=== PATIENT | female | born 1985 | race Caucasian/White ===

== ENCOUNTER → 2019-05-04 09:41 | Outpatient (BNVA) | payer BC, SELFPAY | PROVIDERS: Family Provider Family Medicine; PCP Family Medicine; Visit Provider Family Medicine | DX: E03.9 Hypothyroidism, unspecified (principal); R63.5 Abnormal weight gain; R22.1 Localized swelling, mass and lump, neck | CPT/HCPCS: 36415; 80053; 80061; 84439; 84443; 84480; 85007; 85027 ==

== ENCOUNTER → 2019-05-25 14:59 | Outpatient (BNVA) | payer BC, SELFPAY | PROVIDERS: Family Provider Family Medicine; PCP Family Medicine; Referring Provider Family Medicine; Visit Provider Otolaryngology | DX: J02.9 Acute pharyngitis, unspecified (principal); E03.9 Hypothyroidism, unspecified; R22.1 Localized swelling, mass and lump, neck; R13.10 Dysphagia, unspecified | CPT/HCPCS: 99204; 99214 ==

== ENCOUNTER 2019-06-17 15:58 | Outpatient (CLI) | payer BC, SELFPAY ==
--- NOTE | 2019-06-17 15:30 | CTR_ITS ---
PROCEDURE INFORMATION: Exam: CT Neck With Contrast Exam date and time: 06/17/2019 4:15 PM Age: 33 years old Clinical indication: Mass, lump, or swelling in neck; Prior surgery; Surgery type: Thyroid TECHNIQUE: Imaging protocol: Computed tomography images of the neck with intravenous contrast. Total DLP: 638.94 mGy-cm Radiation optimization: All CT scans at this facility use at least one of these dose optimization techniques: automated exposure control; mA and/or kV adjustment per patient size (includes targeted exams where dose is matched to clinical indication); or iterative reconstruction. Contrast material: OMNI 300; Contrast volume: 95 ml; Contrast route: IV; COMPARISON: [place] thyroid [id number] 03/30/2018 4:40 PM FINDINGS: Nasopharynx: Unremarkable. Oropharynx: Unremarkable. No significant tonsillar enlargement. Hypopharynx: Unremarkable Larynx: Unremarkable. Normal epiglottis. Retropharyngeal space: Unremarkable. Submandibular/Parotid glands: Normal. Glands are normal in size. Thyroid: Status post thyroidectomy. Lymph nodes: Unremarkable. No lymphadenopathy. Trachea: Visualized trachea is unremarkable. Lungs: Unremarkable as visualized. Bones/joints: Unremarkable. No acute fracture. Soft tissues: Unremarkable. No significant soft tissue swelling. CT/CT neck w con* [id number] IMPRESSION: No acute findings. Radiation Dose CTDIVOL = (mGy): DLP = 638.94 (mGy-cm)
[2019-06-17] MEDS: iohexol 300 mg/mL 100 mL Btl 95 ML IV (17:00)
== END 2019-06-17 15:59 | disposition home or self-care (01) ==
LOC: RAD 16:04
PROVIDERS: Family Provider Family Medicine; PCP Family Medicine; Visit Provider Otolaryngology
DX: J02.9 Acute pharyngitis, unspecified (principal); E03.9 Hypothyroidism, unspecified
CPT/HCPCS: 70491

== ENCOUNTER → 2019-06-24 08:44 | Outpatient (BNVA) | payer BC, SELFPAY | PROVIDERS: Family Provider Family Medicine; PCP Family Medicine; Visit Provider Otolaryngology | DX: E07.9 Disorder of thyroid, unspecified (principal); R22.1 Localized swelling, mass and lump, neck; E03.9 Hypothyroidism, unspecified; R13.10 Dysphagia, unspecified | CPT/HCPCS: 99213; 99214 ==

== ENCOUNTER → 2019-06-27 08:55 | Outpatient (BNVA) | payer BC, SELFPAY | PROVIDERS: Family Provider Family Medicine; PCP Family Medicine; Visit Provider Family Medicine | DX: E03.9 Hypothyroidism, unspecified (principal) | CPT/HCPCS: 84439; 84443 ==

== ENCOUNTER → 2019-09-12 15:13 | Outpatient (BNVA) | payer BC, SELFPAY | PROVIDERS: Family Provider Family Medicine; PCP Family Medicine; Visit Provider Family Medicine | DX: R05 Cough (principal); R68.89 Other general symptoms and signs | CPT/HCPCS: 87400 ==

== ENCOUNTER → 2019-09-23 18:45 | Outpatient (BNVA) | payer BC, SELFPAY | PROVIDERS: Family Provider Family Medicine; PCP Family Medicine; Visit Provider Nurse Practitioner Family | DX: J06.9 Acute upper respiratory infection, unspecified (principal); Z20.828 Contact with and (suspected) exposure to other viral communicable diseases | CPT/HCPCS: 87635 ==

== ENCOUNTER → 2019-10-24 09:25 | Outpatient (BNVA) | payer BC, SELFPAY | PROVIDERS: Family Provider Family Medicine; PCP Family Medicine; Visit Provider Family Medicine | DX: I10 Essential (primary) hypertension (principal) | CPT/HCPCS: 82044; 85025 ==

== ENCOUNTER → 2019-12-05 08:34 | Outpatient (BNVA) | payer BC, SELFPAY | PROVIDERS: Family Provider Family Medicine; PCP Family Medicine; Visit Provider Family Medicine | DX: I10 Essential (primary) hypertension (principal); E03.9 Hypothyroidism, unspecified; K21.9 Gastro-esophageal reflux disease without esophagitis | CPT/HCPCS: 80053; 80061; 84439; 84443; 84480 ==

== ENCOUNTER → 2020-03-06 12:25 | Outpatient (BNVA) | payer BC, SELFPAY | PROVIDERS: Family Provider Family Medicine; PCP Family Medicine; Visit Provider Nurse Practitioner | DX: J02.9 Acute pharyngitis, unspecified (principal); J06.9 Acute upper respiratory infection, unspecified | CPT/HCPCS: 87071; 87400; 87880 ==

== ENCOUNTER → 2020-08-10 11:33 | Outpatient (BNVA) | payer OTHER, SELFPAY | PROVIDERS: Family Provider Family Medicine; PCP Family Medicine; Visit Provider Family Medicine | DX: E03.9 Hypothyroidism, unspecified (principal); I10 Essential (primary) hypertension | CPT/HCPCS: 84439; 84443; 84480 ==

== ENCOUNTER → 2020-09-14 14:12 | Outpatient (BNVA) | payer OTHER, SELFPAY | PROVIDERS: Family Provider Family Medicine; PCP Family Medicine; Visit Provider Family Medicine | DX: I10 Essential (primary) hypertension (principal); F41.0 Panic disorder [episodic paroxysmal anxiety] | CPT/HCPCS: 80053; 80061; 85025 ==

== ENCOUNTER 2021-04-26 09:45 | Outpatient (CLI) | payer OTHER, SELFPAY ==
[2021-04-26 09:54] VITALS: BP 130/91; PULSE 80; RESP 17; TEMP 36.5; O2SAT 99; BMI 26.6
[2021-04-26 11:09] VITALS: BP 132/92; PULSE 88; RESP 17; TEMP 36.8; O2SAT 97
[2021-04-26 11:45] VITALS: BP 123/88; PULSE 85; RESP 18; TEMP 36.6; O2SAT 97
== END 2021-04-26 09:46 | disposition home or self-care (01) ==
LOC: OPS 09:48
PROVIDERS: PCP Family Medicine; Visit Provider Nurse Practitioner Family
DX: U07.1 COVID-19 (principal)
CPT/HCPCS: 96365

== ENCOUNTER → 2021-05-28 10:30 | Outpatient (BNVA) | payer OTHER, MEDICAID, SELFPAY | PROVIDERS: PCP Family Medicine; Visit Provider Family Medicine | DX: E03.9 Hypothyroidism, unspecified (principal); I10 Essential (primary) hypertension; F41.0 Panic disorder [episodic paroxysmal anxiety] | CPT/HCPCS: 80048; 84439; 84443; 84480 ==

== ENCOUNTER → 2021-10-14 15:10 | Outpatient (BNVA) | payer OTHER, MEDICAID, SELFPAY | PROVIDERS: PCP Family Medicine; Visit Provider Family Medicine | DX: E03.9 Hypothyroidism, unspecified (principal); F41.0 Panic disorder [episodic paroxysmal anxiety]; I10 Essential (primary) hypertension | CPT/HCPCS: 84439; 84443; 84480 ==

== ENCOUNTER → 2022-05-12 11:44 | Outpatient (BNVA) | payer OTHER, MEDICAID, SELFPAY | PROVIDERS: PCP Family Medicine; Visit Provider Family Medicine | DX: E03.9 Hypothyroidism, unspecified (principal); M25.50 Pain in unspecified joint | CPT/HCPCS: 80053; 84439; 84443; 84480; 85025; 85651; 86038; 86140; 86200; 86431 ==

== ENCOUNTER → 2022-10-22 11:10 | Outpatient (BNVA) | payer MEDICAID, SELFPAY | PROVIDERS: PCP Family Medicine; Visit Provider Internal Medicine | DX: M25.50 Pain in unspecified joint (principal); M45.0 Ankylosing spondylitis of multiple sites in spine | CPT/HCPCS: 36415; 72202; 73120; 80053; 81001; 82306; 82533; 82607; 82784; 83516; 83735; 84100; 84425; 84439; 84443; 84480; 84481; 85025; 86140; 86160; 86162; 86200; 86235; 86255; 86376; 86431; 86480; 86618; 86666; 86704; 86757; 86803; 86812; 87340 ==

== ENCOUNTER 2023-01-08 13:32 | Emergency (ER) | payer MEDICAID, SELFPAY ==
[2023-01-08] VITALS (7 sets, daily range): BP systolic 106–141; BP diastolic 76–100; PULSE 88–114; TEMP 36.6; O2SAT 96–99; BMI 27.6
--- NOTE | 2023-01-08 13:34 | XR_ITS ---
WS: [id number] Exam: XR chest 1V portable [id number] Date/Time of Exam: 01/08/2023 1:36 PM Reason For Exam: cp Comparison 03/09/2019. Mild infiltrate in the RIGHT base may represent developing pneumonia. LEFT lung is clear. The lungs a re fully inflated. No pleural effusions. Normal cardiomediastinal silhouette and regional bony elemen ts. IMPRESSION: 1. Small infiltrate in the RIGHT lung base that may represent developing pneumonia.
--- NOTE | 2023-01-08 13:34 | ECG_ITS ---
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 Measurements Intervals [place] Rate: 111 P: 54 GA: 148 QRS: 11 QRSD: 89 T: 11 QT: 343 QTc: 467 Interpretive Statements SINUS TACHYCARDIA LOW QRS VOLTAGE IN PRECORDIAL LEADS [QRS DEFLECTION < 1.0 mV IN CHEST LEADS] NONSPECIFIC ST & T-WAVE ABNORMALITY ABNORMAL RHYTHM ECG Compared to ECG 09/17/2018 13:53:31 Low QRS voltage now present T-wave abnormality now present Sinus rhythm no longer present Sinus arrhythmia no longer present Electronically Signed On 01-08-2023 19:25:42 CDT by Yovani Rojas M.D. [id number]
[2023-01-08 13:57] LABS: Basophils # 0.1 10^3/uL (0.0-0.1); Basophils % 0.9 %; Eosinophils # 0.1 10^3/uL (0.0-0.8); Eosinophils % 1.2 %; Hematocrit 46.1 % (36-47); Lymphocytes # 1.1 10^3/uL (0.8-4.8); Lymphocytes % 16.9 %; Mean Corpuscular HGB Conc 32.3 g/dL (30-55); Mean Corpuscular Hemoglobin 29.6 pg (27-33); Mean Corpuscular Volume 91.7 fl (85-98); Mean Platelet Volume 9.6 fL (7.4-10.4); Monocytes # 0.7 10^3/uL (0.2-0.9); Monocytes % 11.3 %; Neutrophils % 69.1 %; Nucleated Red Blood Cells % 0 %; Platelet Count 279 10^3/cmm (157-399); Red Blood Count 5.03 10^6/uL (3.85-5.65); Red Cell Distribution Width 12.7 % (12.1-15.1); White Blood Count 6.52 10^3/uL (3.29-11.43)
[2023-01-08 14:20] LABS: Troponin(5th) Baseline 6 ng/L (0-10)
[2023-01-08 14:26] LABS: Alanine Aminotransferase 16 U/L (0-33); Albumin Level 4.4 g/dL (3.5-5.2); Alkaline Phosphatase 131 U/L (35-105); Anion Gap 15.1 (5-19); Aspartate Amino Transferase 20 U/L (0-32); Blood Urea Nitrogen 12 mg/dL (6-20); Calcium 9.2 mg/dL (8.5-10.5); Carbon Dioxide 26 mmol/L (22-29); Chloride 99 mmol/L (98-107); Globulin 3.5 g/dL (1.3-4.6); Glomerular Filtration Rate 70.5 mL/min (90-130); Glucose 102 mg/dL (65-115); Osmolality Calculated 284 mOsm/kg (285-295); Potassium 3.1 mmol/L (3.5-5.1); Sodium 137 mmol/L (136-145); Thyroid Stimulating Hormone 7.68 uIU/mL (0.27-4.20); Total Bilirubin 0.3 mg/dL (0.15-1.2); Total Protein 7.9 g/dL (6.6-8.7)
--- NOTE | 2023-01-08 14:52 | ED_ITS ---
HPI - Chest Pain General: Chief Complaint: Chest Pain Stated Complaint: CP,Heart racing Time Seen by Provider: 01/08/23 14:44 Source: patient Mode of arrival: ambulatory Limitations: no limitations History of Present Illness: 37-year-old female states that last night started having some chest pain having some dyspnea states she has had some diaphoresis as well. She states she is continue to have some pain today but as of now its resolved. She does have a history of hypothyroidism and she had her thyroid removed in the past. Does have a history of anxiety as well but she denies any anxiety type symptoms currently. She denies any worsening improving factors denies any cough or fever Associated symptoms: Reports dyspnea; Deny abdominal pain, fever(s), nausea or vomiting Review of Systems Const: Denies: fever(s), chills or body aches Eyes: Denies: blurry vision or eye discomfort ENMT: Denies: throat pain or dental pain Card: Reports: chest pain Resp: Reports: dyspnea GI: Denies: abdominal pain, nausea, vomiting or diarrhea : Denies: dysuria Musc: Denies: neck pain or back pain Skin/Breast: Denies: rash Neuro: Denies: headache(s) PFSH ED PFSH: Medical History Dysphagia History of COVID-15 May 2021 Hypothyroidism, unspecified Neck mass Panic anxiety syndrome Surgical History H/O bladder repair surgery H/O lithotripsy H/O thyroidectomy H/O: hysterectomy History of cholecystectomy Family History Other Cancer Diabetes Social History Smoking and tobacco status: never smoked Alcohol intake: current Alcohol intake frequency: holidays/special occasions only Substance/Drug Use: never Physical Exam Const: COMMON NORMALS: no acute distress, patient oriented x3 and healthy appearing HENMT: COMMON NORMALS: normocephalic and atraumatic HEAD & SCALP: normocephalic and atraumatic Neck/C-Spine: COMMON NORMALS: full ROM and supple Chest: COMMONS NORMALS: normal inspection of the chest and normal palpation of entire chest wall Resp: COMMON NORMALS: normal respiratory effort, No retractions, No use of accessory muscles and clear to auscultation bilaterally AUSCULTATION: clear to auscultation bilaterally Cardio: COMMON NORMALS: regular rate, regular rhythm and No murmurs present (Cardio) RATE: regular rate RHYTHM: regular rhythm GI: COMMON NORMALS: Normal to inspection, nondistended, normoactive bowel sounds present, Soft to palpation, non-tender and no masses PALPATION: Yes Soft to palpation Extremity: COMMON NORMALS: normal to inspection and full ROM Neuro: COMMON NORMALS: patient oriented x3, moves all extremities and no focal motor deficits Psych: COMMON NORMALS: mental status grossly normal, Normal thought process present and cooperative THOUGHT PROCESS: Normal thought process present Skin: COMMON NORMALS: no rashes or lesions noted and no wounds GENERAL SKIN EXAM: no rashes or lesions noted Course Vital Signs: Vital signs: Vital Signs Temperature 97.8 F 01/08/23 13:51 Pulse Rate 88 01/08/23 18:25 Blood Pressure 134/90 01/08/23 18:00 Pulse Oximetry 99 01/08/23 18:25 Oxygen Delivery Me thod Room Air 01/08/23 18:00 MDM - Chest Pain Medical Decision Making Patient presents for chest pain blood work here is all normal white counts normal her D-dimer is mildly elevated troponins were normal her CT chest was read as a right lower lobe pneumonia. I did not initially write her antibiotics as when I initially saw the CT read I thought it said no right lower lobe p neumonia. I have spoke to patient the next morning at 7 AM and and will call in [facility] this morning for her to [place]. I did inform her if she is having any hypoxia or feeling worse she is to return to the ER her pulse ox was normal at the time seen Medical Records I reviewed the patient's medical records. Lab Data I reviewed the patient's lab results. 01/08/23 13:50 01/08/23 13:50 Radiology Impressions Chest CTA 01/08/23 15:18 IMPRESSION: 1. Right lower lobe pneumonia 2. No evidence of pulmonary embolism. Laboratory Results WBC 6.52 10^3/uL (3.29-11.43) 01/08/23 13:50 RBC 5.03 10^6/uL (3.85-5.65) 01/08/23 13:50 Hgb 14.90 g/dL (11.27-16.99) 01/08/23 13:50 Hct 46.1 % (36-47) 01/08/23 13:50 MCV 91.7 fl (85-98) 01/08/23 13:50 MCH 29.6 pg (27-33) 01/08/23 13:50 MCHC 32.3 g/dL (30-55) 01/08/23 13:50 RDW 12.7 % (12.1-15.1) 01/08/23 13:50 Plt Count 279 10^3/cmm (157-399) 01/08/23 13:50 MPV 9.6 fL (7.4-10.4) 01/08/23 13:50 Neut % (Auto) 69.1 % 01/08/23 13:50 Lymph % (Auto) 16.9 % 01/08/23 13:50 [place] % (Auto) 11.3 % 01/08/23 13:50 Eos % (Auto) 1.2 % 01/08/23 13:50 Baso % (Auto) 0.9 % 01/08/23 13:50 Neut # (Auto) 4.50 10^3/uL (1.8-7.7) 01/08/23 13:50 Lymph # (Auto) 1.1 10^3/uL (0.8-4.8) 01/08/23 13:50 [place] # (Auto) 0.7 10^3/uL (0.2-0.9) 01/08/23 13:50 Eos # (Auto) 0.1 10^3/uL (0.0-0.8) 01/08/23 13:50 Baso # (Auto) 0.1 10^3/uL (0.0-0.1) 01/08/23 13:50 Nucleated RBC % (auto) 0 % 01/08/23 13:50 Nucleated RBCs # 0.0 /100WBC 01/08/23 13:50 D-Dimer 0.72 ug/mLFEU (0-0.59) H 01/08/23 13:51 Sodium 137 mmol/L (136-145) 01/08/23 13:50 Potassium 3.1 mmol/L (3.5-5.1) L 01/08/23 13:50 Chloride 99 mmol/L (98-107) 01/08/23 13:50 Carbon Dioxide 26 mmol/L (22-29) 01/08/23 13:50 Anion Gap 15.1 (5-19) 01/08/23 13:50 BUN 12 mg/dL (6-20) 01/08/23 13:50 Creatinine 0.9 mg/dL (0.5-0.9) 01/08/23 13:50 GFR Calculation 70.5 mL/min (90-130) L 01/08/23 13:50 Glucose 102 mg/dL (65-115) 01/08/23 13:50 Calculated Osmolality 284 mOsm/kg (285-295) L 01/08/23 13:50 Calcium 9.2 mg/dL (8.5-10.5) 01/08/23 13:50 Total Bilirubin 0.3 mg/dL (0.15-1.2) 01/08/23 13:50 AST 20 U/L (0-32) 01/08/23 13:50 ALT 16 U/L (0-33) 01/08/23 13:50 Alkaline Phosphatase 131 U/L (35-105) H 01/08/23 13:50 Troponin T Baseline 6 ng/L (0-10) 01/08/23 13:50 Troponin T 120 Minute 6.0 ng/L (0-10) 01/08/23 16:02 Delta Troponin T 0 ABS# (0-10) 01/08/23 16:02 Total Protein 7.9 g/dL (6.6-8.7) 01/08/23 13:50 Albumin 4.4 g/dL (3.5-5.2) 01/08/23 13:50 Globulin 3.5 g/dL (1.3-4.6) 01/08/23 13:50 TSH 7.68 uIU/mL (0.27-4.20) H 01/08/23 13:50 SARS-CoV-2 Ag (Rapid) negative (Negative) 01/08/23 15:21 EKG Data EKG 1: I personally reviewed and interpreted this EKG as follows: EKG interpretation date: 01/08/23 EKG interpretation time: 13:48 Interpretation: sinus tach hr [address] or t wave abnormalities qrs 89 qtc 408 Discharge Plan Discharge Patient Disposition: Home Clinical Impression: Chest pain, Pneumonia Condition: Stable Prescriptions: No Action hydrochlorothiazide 25 mg tablet 25 mg PO QAM Qty: 90 1RF hydroxychloroquine 200 mg tablet 200 mg PO BID Qty: 60 3RF [place] Thyroid 60 mg tablet 60 mg PO .on , and Qty: 90 0RF citalopram [Celexa] 10 mg tablet 5 mg PO DAILY Qty: 45 1RF [place] Thyroid 90 mg tablet 90 mg PO .on , , and Thu Qty: 90 0RF diclofenac sodium 50 mg tablet,delayed release (DR/EC) 50 mg PO DAILY Qty: 30 3RF Rx Instructions: ok to rx non delayed release Discharge Orders: Discharge ED (Routine); Ordered 01/08/23 Ordered By: Mony Mercedes Referrals: Leidy Noonan DO [Primary Care Provider] - 1-3 days Discharge Diet: Advance as tolerated Discharge Activity: Resume usual activity Patient Instructions: Chest Pain (ED) Coding Level of Care Code ED Credit Specialist for Iliana Peters
[2023-01-08] MEDS: potassium chloride ER 20 mEq Tablet 40 MEQ PO (15:03)
[2023-01-08 15:17] LABS: D Dimer 0.72 ug/mLFEU (0-0.59)
--- NOTE | 2023-01-08 15:18 | CTR_ITS ---
PROCEDURE INFORMATION: Exam: CTA Chest With Contrast Exam date and time: 01/08/2023 5:40 PM Age: 37 years old Clinical indication: Shortness of breath; Additional info: SOB TECHNIQUE: Imaging protocol: Computed tomographic angiography of the chest with contrast. Exam focused on the arteries. 3D rendering (Not supervised by radiologist): MIP and/or 3D reconstructed images were created by the technologist. Radiation optimization: All CT scans at this facility use at least one of these dose optimization techniques: automated exposure control; mA and/or kV adjustment per patient size (includes targeted exams where dose is matched to clinical indication); or iterative reconstruction. Contrast material: OMNI 350; Contrast volume: 100 ml; Contrast route: INTRAVENOUS (IV); REPORTING DATA: Count of CT and Cardiac NM exams in prior 12 months: This patient has received 0 known CTs and 0 known cardiac nuclear medicine studies in the 12 months prior to the current study. COMPARISON: CT angio chest PE protcl [id number] 09/17/2018 1:22 PM RADIATION DOSE METRICS: Total DLP (mGy-cm): 309 FINDINGS: Pulmonary arteries: There is no evidence of filling defects within the pulmonary arterial circulation to suggest pulmonary embolism. Aorta: There is no thoracic aortic aneurysm or dissection. Lungs: There is patchy peribronchial infiltrate and consolidation mainly in the anterior basal segment right lower lobe worrisome for bronchopneumonia. Pleural spaces: Unremarkable. No pneumothorax. No pleural effusion. Heart: Unremarkable. No cardiomegaly. No pericardial effusion. Lymph nodes: There is mild right hilar adenopathy new from previous which may be reactive. There also some mildly prominent paratracheal lymph nodes but no actual mediastinal adenopathy. Bones/joints: Unremarkable. No acute fracture. Soft tissues: Unremarkable. CT/CT angio chest PE protcl [id number] IMPRESSION: 1. Right lower lobe pneumonia 2. No evidence of pulmonary embolism.
[2023-01-08] MEDS: sodium chloride 0.9% 1,000 ML 999 ML IV (15:40)
[2023-01-08 16:00] LABS: SARS Covid-2 Antigen negative (Negative)
--- NOTE | 2023-01-08 16:44 | ECG_ITS ---
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 Measurements Intervals [place] Rate: 89 P: 51 ID: [id number] QRS: 16 QRSD: 110 T: 14 QT: 357 QTc: 435 Interpretive Statements SINUS RHYTHM LOW QRS VOLTAGE IN PRECORDIAL LEADS [QRS DEFLECTION < 1.0 mV IN CHEST LEADS] Compared to ECG 01/08/2023 13:48:02 Sinus tachycardia no longer present T-wave abnormality no longer present Electronically Signed On 01-08-2023 19:29:41 CDT by Yovani Rojas M.D. [id number]
[2023-01-08 16:55] LABS: Troponin 5 2HR Delta 0 ABS# (0-10)
[2023-01-08] MEDS: iohexol 350 mg/mL 500 mL Btl (per mL) IV (17:50)
== END 2023-01-08 18:26 | disposition home or self-care (01) ==
PROVIDERS: Emergency Provider Emergency Medicine; PCP Family Medicine
DX: R07.9 Chest pain, unspecified (principal); J18.9 Pneumonia, unspecified organism; Z20.822 Contact with and (suspected) exposure to COVID-19
CPT/HCPCS: 36415; 71045; 71275; 80053; 84443; 84484; 85025; 85378; 87426; 93005; 96360; 96361; 99285; J7030; Q9967

== ENCOUNTER → 2023-06-15 11:40 | Outpatient (BNVA) | payer MEDICAID, SELFPAY | PROVIDERS: PCP Family Medicine; Visit Provider Family Medicine | DX: E03.9 Hypothyroidism, unspecified (principal); Z13.6 Encounter for screening for cardiovascular disorders; I10 Essential (primary) hypertension | CPT/HCPCS: 80053; 80061; 84439; 84443; 84480 ==

== ENCOUNTER → 2023-10-12 13:13 | Outpatient (BNVA) | payer MEDICAID, SELFPAY | PROVIDERS: PCP Family Medicine; Visit Provider Family Medicine | DX: E03.9 Hypothyroidism, unspecified (principal) | CPT/HCPCS: 84439; 84443; 84480 ==

== ENCOUNTER → 2024-03-02 15:47 | Outpatient (BNVA) | payer MEDICAID, SELFPAY | PROVIDERS: PCP Family Medicine Adult Medicine; Visit Provider Emergency Medicine | DX: M25.561 Pain in right knee (principal) | CPT/HCPCS: 73562 ==

== ENCOUNTER → 2024-03-31 11:25 | Outpatient (BNVA) | payer MEDICAID, SELFPAY | PROVIDERS: PCP Family Medicine Adult Medicine; Visit Provider Internal Medicine Rheumatology | DX: M32.9 Systemic lupus erythematosus, unspecified (principal); Z79.899 Other long term (current) drug therapy | CPT/HCPCS: 36415; 80076; 82565; 85025; 85651; 86140 ==

== ENCOUNTER → 2024-04-04 15:39 | Outpatient (BNVA) | payer MEDICAID, SELFPAY | PROVIDERS: PCP Family Medicine Adult Medicine; Visit Provider Specialist | DX: M25.561 Pain in right knee (principal); S89.91XA Unspecified injury of right lower leg, initial encounter; W18.39XA Other fall on same level, initial encounter | CPT/HCPCS: 73560; 73565 ==

== ENCOUNTER 2024-04-11 07:12 | Outpatient (CLI) | payer MEDICAID, SELFPAY ==
--- NOTE | 2024-04-11 07:15 | MR_ITS ---
WS: [id number] MRI RIGHT KNEE HISTORY: right knee pain, medial knee pain status post injury 2 months ago. COMPARISON: 04/04/2024 Anterior cruciate ligament: Intact. Posterior cruciate ligament: Intact. Medial collateral ligament: Intact. Posterior lateral corner structures: Intact. Medial menisci: Abnormal signal in a large portion of the posterior horn medial meniscus. There is bl unting of the free edge consistent with a tear. Shape of the meniscus is slightly globular. There is increased linear signal extending through the posterior horn. Complex tear does extend to both the [place] perior and inferior articular surfaces and also the peripheral third. There is increased signal exten ding along the peripheral meniscus into the capsular attachment of the meniscus. Lateral meniscus: Intact. Normal signal, size and shape. Extensor mechanism: Distal quadriceps tendon and patellar tendons are intact. Fluid and soft tissue: Very small suprapatellar joint effusion. There is a small amount of increased fluid and edema near the posterior medial meniscocapsular junction. No Estevez's cyst. Osseous and articular structures: Patellofemoral compartment: Normal. Medial compartment: No significant joint space narrowing. There is a short segment full-thickness def ect in the femoral cartilage along the weightbearing surface towards the intercondylar notch. This is also the same location where there is blunting of the free edge of the posterior meniscal horn. No f racture or marrow edema. Lateral compartment: Normal. MR/MR knee RT wo con* [id number] IMPRESSION: 1. Abnormal posterior horn of the medial meniscus. Complex tear extending to b oth the superior and inferior articular surfaces with interruption of the menis dennis capsular attachment. Blunted free edge of the posterior horn medial meniscu s also with an adjacent small cartilaginous defect. 2. No fracture or marrow edema. 3. No ACL tear.
== END 2024-04-11 07:13 | disposition home or self-care (01) ==
LOC: RAD 07:13
PROVIDERS: PCP Family Medicine Adult Medicine; Visit Provider Specialist
DX: S83.231A Complex tear of medial meniscus, current injury, right knee, initial encounter (principal); X50.1XXA Overexertion from prolonged static or awkward postures, initial encounter
CPT/HCPCS: 73721

== ENCOUNTER → 2024-05-16 09:43 | Outpatient (BNVA) | payer MEDICAID, SELFPAY | PROVIDERS: PCP Family Medicine Adult Medicine; Visit Provider Specialist | DX: M32.9 Systemic lupus erythematosus, unspecified; Z79.899 Other long term (current) drug therapy | CPT/HCPCS: 36415; 80076; 82565; 85025; 85652; 86140 ==

== ENCOUNTER 2024-06-02 12:49 | Emergency (ER) | payer MEDICAID, SELFPAY ==
[2024-06-02 13:05] VITALS: BP 143/97; PULSE 88; RESP 18; TEMP 36.7; O2SAT 100; BMI 28.3
--- NOTE | 2024-06-02 13:10 | ECG_ITS ---
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 Measurements Intervals [place] Rate: 78 P: 39 CA: 150 QRS: 10 QRSD: 95 T: 17 QT: 373 QTc: 427 Interpretive Statements SINUS RHYTHM LOW QRS VOLTAGE IN PRECORDIAL LEADS [QRS DEFLECTION < 1.0 mV IN CHEST LEADS] PATTERN CONSISTENT WITH PULMONARY DISEASE Compared to ECG 01/08/2023 16:44:23 No significant changes Electronically Signed On 06-02-2024 21:49:44 ADMINISTRATIVE PROJECT COORDINATOR by Soto Monroe M.D. [id number] [id number]
[2024-06-02 14:33] VITALS: PULSE 85; RESP 16; O2SAT 100
[2024-06-02 14:34] VITALS: BP 151/110
--- NOTE | 2024-06-02 14:38 | ED_ITS ---
HPI - Back Pain/Injury 2 General: Chief Complaint: Back Pain/Injury Stated Complaint: Back pain nausea high heart rate Time Seen by Provider: 06/02/24 14:33 History of Present Illness: 38-year-old female who presents to the e mergency room with complaints of low back pain. It has been going on for some time. She states she has had an elevated heart rate as well as having some nausea and back pain she relates back pain to her low back on the right side at the level of the lumbosacral junction. At times it radiates into the right buttock and into the lateral portion of the right leg. She has not had any difficulty with urinary retention or fecal incontinence. She has a history of lupus and rheumatoid arthritis she is on methotrexate she recently was on a prednisone taper and stopped that after a brief taper. She took 5 mg prednisone earlier today along with Tylenol that did seem to help some. She has no she has little bit of discomfort when she finishes urination but no increased frequency no hematuria. Associated symptoms: Deny abdominal pain, chills, dysuria, fever(s) or urinary urgency Related Data Home Medications ?Medication ?Instructions ?Recorded ?Confirmed hydrochlorothiazide 25 mg tablet 25 mg PO QAM 06/02/24 06/08/24 thyroid (pork) 60 mg tablet See Rx Instructions .Route .COMPLEX 06/02/24 06/08/24 ([place] Thyroid) thyroid (pork) 90 mg tablet See Rx Instructions .Route .COMPLEX 06/02/24 06/08/24 ([place] Thyroid) Previous Rx's ?Medication ?Instructions ?Recorded alprazolam 0.25 mg tablet 0.25 mg PO DAILY PRN anxiety #30 06/15/23 tabs citalopram 10 mg tablet 5 mg (1/2 x 10 mg) PO DAILY #90 11/13/23 tabs folic acid 1 mg tablet 1 mg PO DAILY #30 tabs 03/31 methotrexate sodium 2.5 mg tablet See Rx Instructions PO .Q7days #30 03/31/24 tabs prednisone 20 mg tablet 20 mg PO TID #15 tabs tramadol 50 mg tablet 50 - 100 mg (1 - 2 x 50 mg) PO Q8H 06/09/24 PRN pain 7 days #30 tabs Allergies Allergy/AdvReac Type Severity Reaction Status Date / Time buspirone (From BuSpar) Allergy Intermediate drowsiness/ Verified 06/09/24 12:02 nightmares Sulfa (Sulfonamide Allergy ALGY-Rash Verified 06/09/24 12:02 Antibiotics) hydrocodone AdvReac ADR-Vomitin Verified 06/09/24 12:02 g Review of Systems 2 Const: Denies: fever(s) or chills Card: Denies: chest pain Resp: Denies: dyspnea GI: Denies: abdominal pain : Denies: dysuria, urinary frequency or urinary urgency Musc: Reports: back pain; Denies: neck pain Skin/Breast: Denies: rash PFSH ED 2 PFSH: Medical History Immunization counseling High risk medication use Inflammatory arthritis SLE (systemic lupus erythematosus related syndrome) Asymptomatic bradycardia ELKIN positive History of COVID-15 May 2021 Hypothyroidism, unspecified Panic anxiety syndrome Surgical History H/O: hysterectomy History of cholecystectomy H/O bladder repair surgery H/O lithotripsy H/O thyroidectomy Family History Other Cancer Diabetes Social History Smoking and tobacco/nicotine status: never used tobacco/nicotine Alcohol intake: current Alcohol intake frequency: holidays/special occasions only Substance/Drug Use: never Physical Exam 2 Const: COMMON NORMALS: no acute distress GENERAL APPEARANCE: cooperative and comfortable ORIENTATION/CONSCIOUSNESS: Yes awake, Yes oriented to person, Yes oriented to place and Yes oriented to time HENMT: COMMON NORMALS: normocephalic, atraumatic and hearing grossly normal bilaterally HEAD & SCALP: normocephalic and atraumatic Resp: COMMON NORMALS: normal respiratory effort, No retractions, No use of accessory muscles and clear to auscultation bilaterally AUSCULTATION: clear to auscultation bilaterally Cardio: COMMON NORMALS: regular rate, regular rhythm and No murmurs present (Cardio) RATE: regular rate RHYTHM: regular rhythm GI: COMMON NORMALS: Soft to palpation and No hepatosplenomegaly present A USCULTATION: Yes normoactive bowel sounds PALPATION: Yes Soft to palpation, No Tenderness to palpation present (GI), No Guarding due to palpation present (GI) and Yes No hepatosplenomegaly present : COMMON NORMALS: Yes no CVA tenderness BLADDER/KIDNEY EXAM: Yes no CVA tenderness Back/Pelvis: COMMON NORMALS: no CVA tenderness Extremity: COMMON NORMALS: normal to inspection, capillary refill normal, no clubbing, cyanosis or edema, no calf tenderness and no pedal edema Neuro: SENSORIUM/ORIENTATION: Yes oriented to person, Yes oriented to place and Yes oriented to time Skin: COMMON NORMALS: no rashes or lesions noted GENERAL SKIN EXAM: no rashes or lesions noted Course 2 Vital Signs: Vital signs: Vital Signs Temperature 98.1 F 06/02/24 13:05 Pulse Rate 78 06/02/24 16:03 Respiratory Rate 16 06/02/24 16:03 Blood Pressure 148/98 06/02/24 16:03 Pulse Oximetry 100 06/02/24 16:03 Oxygen Delivery Me thod Room Air 06/02/24 13:05 MDM - Back Pain/Injury Medical Decision Making Low back pain with radicular symptoms. She has been having difficulty with her knee. Suspect she has adjusted her posture to accommodate for her knee which is led to increased back pain. Improved with medications given will discharge patient home on steroid taper as well as muscle relaxers anti-inflammatories follow-up with primary care if persist may need advanced imaging Labs 06/02/24 14:36 06/02/24 14:36 Laboratory Results WBC 7.76 10^3/uL (3.29-11.43) 06/02/24 14:36 RBC 4.64 10^6/uL (3.85-5.65) 06/02/24 14:36 Hgb 14.30 g/dL (11.27-16.99) 06/02/24 14:36 Hct 42.6 % (36-47) 06/02/24 14:36 MCV 91.8 fl (85-98) 06/02/24 14:36 MCH 30.8 pg (27-33) 06/02/24 14:36 MCHC 33.6 g/dL (30-55) 06/02/24 14:36 RDW 13.4 % (12.1-15.1) 06/02/24 14:36 Plt Count 344 10^3/cmm (157-399) 06/02/24 14:36 MPV 9.5 fL (7.4-10.4) 06/02/24 14:36 Neut % (Auto) 81.6 % 06/02/24 14:36 Lymph % (Auto) 13.0 % 06/02/24 14:36 [place] % (Auto) 3.7 % 06/02/24 14:36 Eos % (Auto) 0.9 % 06/02/24 14:36 Baso % (Auto) 0.5 % 06/02/24 14:36 Neut # (Auto) 6.33 10^3/uL (1.8-7.7) 06/02/24 14:36 Lymph # (Auto) 1.0 10^3/uL (0.8-4.8) 06/02/24 14:36 [place] # (Auto) 0.3 10^3/uL (0.2-0.9) 06/02/24 14:36 Eos # (Auto) 0.1 10^3/uL (0.0-0.8) 06/02/24 14:36 Baso # (Auto) 0.0 10^3/uL (0.0-0.1) 06/02/24 14:36 Nucleated RBC % (auto) 0 % 06/02/24 14:36 Nucleated RBCs # 0.0 /100WBC 06/02/24 14:36 Sodium 141 mmol/L (136-145) 06/02/24 14:36 Potassium 3.9 mmol/L (3.5-5.1) 06/02/24 14:36 Chloride 102 mmol/L (98-107) 06/02/24 14:36 Carbon Dioxide 30 mmol/L (22-29) H 06/02/24 14:36 Anion Gap 12.9 (5-19) 06/02/24 14:36 BUN 10 mg/dL (6-20) 06/02/24 14:36 Creatinine 0.8 mg/dL (0.5-0.9) 06/02/24 14:36 GFR Calculation 80.3 mL/min (90-130) L 06/02/24 14:36 Glucose 79 mg/dL (65-115) 06/02/24 14:36 Calculated Osmolality 290 mOsm/kg (285-295) 06/02/24 14:36 Calcium 9.5 mg/dL (8.5-10.5) 06/02/24 14:36 Total Bilirubin 0.2 mg/dL (0.15-1.2) 06/02/24 14:36 AST 26 U/L (0-32) 06/02/24 14:36 ALT 24 U/L (0-33) 06/02/24 14:36 Alkaline Phosphatase 123 U/L (35-105) H 06/02/24 14:36 Total Protein 8.0 g/dL (6.6-8.7) 06/02/24 14:36 Albumin 4.6 g/dL (3.5-5.2) 06/02/24 14:36 Globulin 3.4 g/dL (1.3-4.6) 06/02/24 14:36 Lipase 74 U/L (13-60) H 06/02/24 14:36 HCG, Qual Negative (Negative) 06/02/24 14:36 Urine Color Yellow (Yellow) 06/02/24 14:29 Urine Appearance Clear (CLEAR) 06/02/24 14:29 Urine pH 6.5 (5-7) 06/02/24 14:29 Ur Specific Chaun[place]y 1.012 (1.005-1.030) 06/02/24 14:29 Urine Protein Negative (Negative) 06/02/24 14:29 Urine Glucose (UA) Negative (Normal) 06/02/24 14:29 Urine Ketones Negative (Negative) 06/02/24 14:29 Urine Blood Negative (Negative) 06/02/24 14:29 Urine Nitrate Negative (Negative) 06/02/24 14:29 Urine Bilirubin Negative (Negative) 06/02/24 14:29 Urine Urobilinogen 0.2 mg/dL (Negative) 06/02/24 14:29 Ur Leukocyte Esterase Negative (Negative) 06/02/24 14:29 Urine RBC 0-2 /hpf (0-2) 06/02/24 14:29 Urine WBC 0-5 /hpf (0-5) 06/02/24 14:29 Ur Squamous Epith Cells 0-5 /hpf (0-5) 06/02/24 14:29 Amorphous Sediment Not Reportable 06/02/24 14:29 Urine Bacteria None seen /hpf (NONE) 06/02/24 14:29 Hyaline Casts 0.40 /lpf 06/02/24 14:29 No radiology studies performed this visit Discharge Plan Discharge Patient Disposition: Home Clinical Impression: Lumbar radiculopathy Condition: Stable Prescriptions: New prednisone 20 mg tablet 20 mg PO TID Qty: 15 0RF Rx Instructions: 1 p.o. 3 times daily x3 days, 1 p.o. twice daily x2 days, 1 p.o. daily x2 days No Action alprazolam 0.25 mg tablet 0.25 mg PO DAILY PRN (Reason: anxiety) Qty: 30 0RF methotrexate sodium 2.5 mg tablet See Rx Instructions PO .Q7days Qty: 30 4RF Rx Instructions: Take 6 tablets on same day once a week on Thursday. folic acid 1 mg tablet 1 mg PO DAILY Qty: 30 5RF citalopram 10 mg tablet 5 mg PO DAILY Qty: 90 0RF hydrochlorothiazide 25 mg tablet 25 mg PO QAM thyroid (pork) [[place] Thyroid] 60 mg tablet See Rx Instructions .ROUTE .COMPLEX Rx Instructions: Take 1 tablet by mouth on Thursday, Thursday, and Thursday. thyroid (pork) [[place] Thyroid] 90 mg tablet See Rx Instructions .ROUTE .COMPLEX Rx Instructions: Take 1 tablet by mouth on Thursday, , Thursday, and Thursday. tramadol 50 mg tablet 50 - 100 mg PO Q8H PRN (Reason: pain) 7 Days Qty: 30 0RF Discharge Orders: Discharge ED (Routine); Ordered 06/02/24 Ordered By: Agustín West Referrals: Dago Garrett MD [Primary Care Provider] - Discharge Diet: Usual diet Discharge Activity: Increase activity as tolerated Patient Instructions: Lumbar Radiculopathy (ED), Opioid Safety, Pain Management Activity Restrictions/Additional Instructions: Thank you for choosing [facility] for your healthcare needs today. It is very important that you follow up as instructed or that you return to the Emergency Department should you have concerns or if your condition changes or worsens in any way. You were seen in the emergency room with back pain. Anterior back pain is more suggestive of musculoskeletal or possible nerve impingement. Urine did not show any signs of infection or signs of kidney stones. You are given steroid taper to start tomorrow. You are also given muscle relaxer to use as needed you can use Tylenol along with this. We have asked case management to help you reestablish with Dr. Noonan when she reopens her practice in a few weeks. Print Language: Yi Coding Level of Care Code ED Jacquard Lace Weaver for Iliana Peters
[2024-06-02 14:40] LABS: Bilirubin Urine Negative (Negative); Blood Urine Negative (Negative); Glucose Urine UA Negative (Normal); Ketones Urine Negative (Negative); Leukocyte Esterase Urine Negative (Negative); Nitrate Urine Negative (Negative); Protein Urine Negative (Negative); Specific Gravity, Urine 1.012 (1.005-1.030); Urine Appearance Clear (CLEAR); Urine Color Yellow (Yellow); Urobilinogen Urine 0.2 mg/dL (Negative); pH Urine 6.5 (5-7)
[2024-06-02 14:48] LABS: Add Urine Microscopic? YES; Bacteria Urine None Seen /hpf; RBC Urine 0-2 /hpf (0-2); Squamous Epithelial Cell Urine 0-5 /hpf (0-5); WBC Urine 0-5 /hpf (0-5)
[2024-06-02 14:49] LABS: Basophils % 0.5 %; Eosinophils # 0.1 10^3/uL (0.0-0.8); Eosinophils % 0.9 %; Hematocrit 42.6 % (36-47); Mean Corpuscular HGB Conc 33.6 g/dL (30-55); Mean Corpuscular Hemoglobin 30.8 pg (27-33); Mean Corpuscular Volume 91.8 fl (85-98); Mean Platelet Volume 9.5 fL (7.4-10.4); Monocytes # 0.3 10^3/uL (0.2-0.9); Monocytes % 3.7 %; Neutrophils # 6.33 10^3/uL (1.8-7.7); Neutrophils % 81.6 %; Nucleated Red Blood Cells % 0 %; Platelet Count 344 10^3/cmm (157-399); Red Blood Count 4.64 10^6/uL (3.85-5.65); Red Cell Distribution Width 13.4 % (12.1-15.1); White Blood Count 7.76 10^3/uL (3.29-11.43)
[2024-06-02 15:05] VITALS: BP 150/101; PULSE 84; RESP 16; O2SAT 99
[2024-06-02 15:07] LABS: Alanine Aminotransferase 24 U/L (0-33); Albumin Level 4.6 g/dL (3.5-5.2); Alkaline Phosphatase 123 U/L (35-105); Anion Gap 12.9 (5-19); Aspartate Amino Transferase 26 U/L (0-32); Blood Urea Nitrogen 10 mg/dL (6-20); Calcium 9.5 mg/dL (8.5-10.5); Carbon Dioxide 30 mmol/L (22-29); Chloride 102 mmol/L (98-107); Creatinine Clr Calc Pharmacy 94.4627; Globulin 3.4 g/dL (1.3-4.6); Glomerular Filtration Rate 80.3 mL/min (90-130); Glucose 79 mg/dL (65-115); Lipase 74 U/L (13-60); Osmolality Calculated 290 mOsm/kg (285-295); Potassium 3.9 mmol/L (3.5-5.1); Sodium 141 mmol/L (136-145); Total Bilirubin 0.2 mg/dL (0.15-1.2)
[2024-06-02 15:12] LABS: HCG, Serum Qual Negative (Negative)
[2024-06-02] MEDS: dexamethasone 10 mg/mL INJ IM (16:02)
[2024-06-02 16:03] VITALS: BP 148/98; PULSE 78; RESP 16; O2SAT 100
== END 2024-06-02 16:04 | disposition home or self-care (01) ==
PROVIDERS: Emergency Medicine; Emergency Provider Family Medicine; PCP Family Medicine Adult Medicine
DX: M54.16 Radiculopathy, lumbar region (principal)
CPT/HCPCS: 36415; 80053; 81001; 83690; 84703; 85025; 93005; 96372; 99284; J1100

== ENCOUNTER 2024-06-09 11:50 | Day surgery (SDC) | payer MEDICAID, SELFPAY ==
[2024-06-09] VITALS (9 sets, daily range): BP systolic 119–132; BP diastolic 82–106; PULSE 81–93; RESP 16–17; TEMP 36.2–36.3; O2SAT 97–99; BMI 28.3
[2024-06-09] MEDS: acetaminophen 1,000 MG/100 ML PIGGYBACK 400 MG IV (12:16)
[2024-06-09] MEDS: sodium chloride 0.9% 1,000 ML 30 ML IV (12:16)
[2024-06-09] MEDS: gabapentin 300 mg Capsule PO (12:17)
[2024-06-09] MEDS: CELEcoxib 200 mg Capsule 400 MG PO (12:17)
[2024-06-09] MEDS: scopolamine 1 mg PATCH 1 PATCH TRANSDERMA (12:24)
--- NOTE | 2024-06-09 12:29 | ANES.PREANE2 ---
Pre-Anesthetic Assessment Height/Weight: Height 5 ft 4 in Weight 165 lb Temp Pulse Resp BP Pulse Ox O2 Del Method 97.4 F L 81 17 126/88 99 Room Air 06/09/24 12:05 06/09/24 12:05 06/09/24 12:05 06/09/24 12:05 06/09/24 12:06/09/24 12:07 Preop Diagnosis: Knee pain Operation Date: 06/09/24 13:15 Proposed Procedures p Knee Arthroscopy Knee Arthroscopy w/ Meniscectomy & Debridement(Right) - Ludmila Lange MD Was Beta Tomy taken within 24 hours: N/A Was Clonidine taken within 24 hours: N/A Last intake: Intake Last Liquid Date 06/08/24 Last Liquid Time 21:30 Last Solid Date 06/08/24 Last Solid Time 20:15 Social No alcohol and No tobacco Exam alert, oriented x 3, clear to auscultation bilaterally and regular rate & rhythm Airway Submandibular: within normal limits Cervical ROM: within normal limits Mallampati: Class II Dentition: full Anesthetic Plan ASA status: 3 Anesthesia: General Other: History of PONV, states she has gotten nauseous and sick after every anesthetic. Scopolamine patch applied. Plan on TIVA anesthetic NPO since yesterday Patient has a history of SLE. Just finished a 4-day 20 mg/day regimen. Not on chronic prednisone Patient denies any neck issues History of GERD, diet controlled. Hypertension on hydrochlorothiazide. Preop BP 126/88 Labs from 06/02/2024 reviewed and acceptable for procedure Patient states that she has kidney problems from her SLE but creatinine was 0.8 EKG sinus rhythm Plan for general anesthesia Medications/Allergies Home Medications ?Medication ?Instructions ?Recorded ?Confirmed ?Last Taken ?Type alprazolam 0.25 mg tablet 0.25 mg PO DAILY PRN anxiety #30 06/15/23 06/08/24 Unknown Rx tabs citalopram 10 mg tablet 5 mg (1/2 x 10 mg) PO DAILY #90 11/13/23 06/08/24 06/08/24 Rx tabs folic acid 1 mg tablet 1 mg PO DAILY #30 tabs 03/31/24 06/08/24 06/08/24 Rx methotrexate sodium 2.5 mg tablet See Rx Instructions PO .Q7days #30 03/31/24 06/08/24 06/08/24 Rx tabs hydrochlorothiazide 25 mg tablet 25 mg PO QAM 06/02/24 06/08/24 06/08/24 History prednisone 20 mg tablet 20 mg PO TID #15 tabs 06/02/24 06/08/24 Unknown Rx thyroid (pork) 60 mg tablet See Rx Instructions .Route .COMPLEX 06/02/24 06/08/24 06/08/24 History ([place] Thyroid) thyroid (pork) 90 mg tablet See Rx Instructions .Route .COMPLEX 06/02/24 06/08/24 06/07/24 History ([place] Thyroid) Allergies Allergy/AdvReac Type Severity Reaction Status Date / Time buspirone (From BuSpar) Allergy Intermediate drowsiness/ Verified 06/09/24 12:02 nightmares Sulfa (Sulfonamide Allergy ALGY-Rash Verified 06/09/24 12:02 Antibiotics) hydrocodone AdvReac ADR-Vomitin Verified 06/09/24 12:02 g Current Medications Generic Name Dose Route Start Last Admin Trade Name Freq PRN Reason Stop Dose Admin Sodium Chloride 1,000 mls @ 30 mls/hr 06/09/24 12:00 06/09/24 12:16 Sodium Chloride 0.9% IV 06/10/24 11:59 30 mls/hr .Q24H ANKITA Administration PFSH Anesthesia Medical History Immunization counseling High risk medication use Inflammatory arthritis SLE (systemic lupus erythematosus related syndrome) Asymptomatic bradycardia ELKIN positive History of COVID-15 May 2021 Hypothyroidism, unspecified Panic anxiety syndrome Surgical History H/O: hysterectomy History of cholecystectomy H/O bladder repair surgery H/O lithotripsy H/O thyroidectomy Family History Other Cancer Diabetes Social History Smoking and tobacco/nicotine status: never used tobacco/nicotine Alcohol intake: current Alcohol intake frequency: holidays/special occasions only Substance/Drug Use: never Data Anesthesia Cardiac Studies: No Data to Display
--- NOTE | 2024-06-09 13:40 | P.HPUD_ITS ---
Surgery/Procedure H&P Update DATE OF PROCEDURE: June 09, 2024 DATE H&P PERFORMED: 05/16/24 H&P UPDATE INFORMATION: I have reviewed H&P completed within last 30 days, I have examined patient prior to procedure, No changes to prior documentation and H&P is in [facility] EMR on date indicated PREOP DIAGNOSIS: Knee pain PRIMARY INDICATION FOR PROCEDURE: MRI RIGHT KNEE 04/11/24 IMPRESSION: 1. Abnormal posterior horn of the medial meniscus. Complex tear extending to both the superior and inferior articular surfaces with interruption of the meniscal capsular attachment. Blunted free edge of the posterior horn medial me niscus also with an adjacent small cartilaginous defect. 2. No fracture or marrow edema. 3. No ACL tear. PLANNED PROCEDURE: Operation Date: 06/09/24 13:15 Proposed Procedures p Knee Arthroscopy Knee Arthroscopy w/ Meniscectomy & Debridement(Right) - Ludmila Lange MD Related Problem List Diagnoses (1) Acute medial meniscus tear of right knee: Qualifiers: Encounter type: initial encounter Qualified Code(s): S83.241A - Other tear of medial meniscus, current injury, right knee, initial encounter
[2024-06-09] MEDS: ceFAZolin 2,000 mg SDV 2000 MG IVP (14:10)
[2024-06-09] MEDS: ROPivacaine 0.5% SDV 30 mL 150 MG INJECTION (14:59)
[2024-06-09] MEDS: morphine 4 mg/mL SDV 1 mL 8 MG XX (15:01)
[2024-06-09] MEDS: fentaNYL 50 mcg/mL INJ 2mL IVP (15:20)
--- NOTE | 2024-06-09 15:51 | P.OP_ITS ---
Operative Report Date of procedure: June 09, 2024 Pre-op diagnosis: Right knee anterior horn medial meniscal tear Post-op diagnosis: Right knee anterior and posterior horn medial meniscal tears with inner rim tearing of the lateral meniscus and synovitis anteriorly Procedure done: Right arthroscopic knee surgery with partial medial and lateral meniscectomies and synovectomy Implants: None Specimens removed/disposition: Meniscal fragments, disposed of Pathology: None Surgeon: Ludmila Lange MD [employer] Programs Director: [facility] operating room technicians Anesthesia: General (Per LMA) Estimated blood loss (mL): 5 Tourniquet time (min): 52 (At 250 mmHg) IV fluids (mL): 900 Urine output (mL): 0 (No Luna) Complications: None Findings: As noted under postop diagnosis Condition: stable Disposition: PACU (Then return to same-day surgery for discharge to home) Brief History: This 38-year-old woman presented to the clinic complaining of severe right knee pain. She lost her footing and hit her right knee on concrete in January 2023. Workup included x-rays and an MRI. The MRI demonstrated no fracture, but it did demonstrate abnormal single and a large portion of the posterior horn the medial meniscus consistent with a tear also, there was extension of the tear into the peripheral third. After evaluation and comment, the patient wished to proceed with operative intervention. Risks and complications were discussed with her, and consents were signed. Procedure: Patient was brought to the operating theater and after undergoing adequate general anesthesia per LMA, the patient's right lower extremity was prepped and draped in usual fashion utilizing DuraPrep. A tourniquet was placed high on the leg prior to prepping and draping. The tourniquet was elevated prior to commencement of the surgical procedure to 250 mmHg. Total tourniquet time was 52 minutes. Elevation followed prepping and exsanguination. Prior to commencement of the surgical procedure, a surgical pause was performed. At the time of the surgical pause, we identified the site and side of surgery. We also confirm the patient's identity and appropriate and timely administration of preoperative antibiotics. Preoperative surgical markings were also visualized at this time. Standard arthroscopic portals were utilized including superolateral, inferomedial, and inferolateral portals. The examination commenced in the suprapatellar pouch area where the patient was noted to have slight chondromalacia on the undersurface of the patella. There was also noted to be some synovitis in the knee particularly anteriorly and a significant hypertrophy of the fat pad. The arthroscope was then passed in the medial compartment where there was noted to be tearing of both the posterior and anterior horns of the medial meniscus. There was copious fat pad in this area and this was excised partially. Anterior cruciate was noted to be intact. There was irregularity of the meniscus directly anterior to the anterior cruciate ligament. The scope was passed into the lateral compartment with the knee in a [id number] position. Lateral meniscus was noted to have inner rim tearing consistent with slight degenerative change. This was addressed with a combination of the intra- articular shaver and intra-articular heat wand. Once lateral meniscus had been thus prepared it was palpated and found to be intact and not displaceable into the knee joint. Scope was then returned to the medial compartment where a combination of multiple basket forceps, intra-articular shaver, and the heat wand were used to address the posterior horn and anterior horn of the medial meniscus. There was noted to be tightness to the knee causing this to be difficult. Once this was resected and appropriately smooth, the probe was placed into the knee. The meniscus was palpated and found to be not displaceable into the knee joint. The arthroscope was then returned to the patellofemoral joint for reevaluation. Throughout the knee, there was noted to be synovitis which was resected as well. The scope was passed back through the knee compartments to evaluate for other abnormalities. Finding none, attention was directed to closure. The knee was copiously irrigated and suctioned dry. Following this, each portal was closed with a simple suture followed by Dermabond and OpSite. Additionally, the knee was injected with 20 mL of half percent ropivacaine and 8 mg of morphine. Additional 10 mL of ropivacaine was placed about the portals. Sterile dressing was placed consisting of the Opsite followed by the Migue wrap. Patient was returned to Recovery Room in satisfactory condition where she will be discharged home to follow-up with me in the office as scheduled. There were no complications and no specimens. Related Problem List Diagnoses (1) Acute medial meniscus tear of right knee: (2) Tear of lateral meniscus of right knee: (3) Synovitis of right knee:
[2024-06-09] MEDS: ondansetron 2 mg/ML SDV 2 mL 4 MG IVP (16:34)
[2024-06-09] MEDS: TRAMadol 50 mg Tablet 100 MG PO (16:37)
== END 2024-06-09 16:42 | disposition home or self-care (01) ==
PROVIDERS: PCP Family Medicine Adult Medicine; Visit Provider Specialist
PROC: (CPT 29870; principal; 2024-06-09 13:05)
PROC: (CPT 29880; 2024-06-09 13:05)
DX: S83.241D Other tear of medial meniscus, current injury, right knee, subsequent encounter (principal); S83.281D Other tear of lateral meniscus, current injury, right knee, subsequent encounter; M65.861 Other synovitis and tenosynovitis, right lower leg; M79.4 Hypertrophy of (infrapatellar) fat pad; K21.9 Gastro-esophageal reflux disease without esophagitis; I10 Essential (primary) hypertension; Z79.899 Other long term (current) drug therapy; Z88.2 Allergy status to sulfonamides; Z88.5 Allergy status to narcotic agent; Z88.8 Allergy status to other drugs, medicaments and biological substances; E03.9 Hypothyroidism, unspecified; M32.9 Systemic lupus erythematosus, unspecified; E89.0 Postprocedural hypothyroidism; Z90.49 Acquired absence of other specified parts of digestive tract; W19.XXXD Unspecified fall, subsequent encounter
CPT/HCPCS: 29880; J0131; J0690; J1100; J2250; J2270; J2405; J2704; J2795; J3010; J7030

== ENCOUNTER → 2024-06-29 11:32 | Outpatient (BNVA) | payer MEDICAID, SELFPAY | PROVIDERS: PCP Family Medicine; Visit Provider Internal Medicine Rheumatology | DX: M32.9 Systemic lupus erythematosus, unspecified (principal); Z79.899 Other long term (current) drug therapy; M54.50 Low back pain, unspecified; M19.90 Unspecified osteoarthritis, unspecified site; R76.8 Other specified abnormal immunological findings in serum; Z71.85 Encounter for immunization safety counseling | CPT/HCPCS: 36415; 86160 ==

== ENCOUNTER → 2024-07-15 15:54 | Outpatient (BNVA) | payer MEDICAID, SELFPAY | PROVIDERS: PCP Family Medicine; Visit Provider Family Medicine | DX: R10.9 Unspecified abdominal pain (principal); G89.29 Other chronic pain; E03.9 Hypothyroidism, unspecified; F41.0 Panic disorder [episodic paroxysmal anxiety] | CPT/HCPCS: 80053; 83690; 84439; 84443; 84480 ==

== ENCOUNTER → 2024-10-10 08:20 | Outpatient (BNVA) | payer MEDICAID, SELFPAY | PROVIDERS: PCP Family Medicine; Visit Provider Family Medicine | DX: E03.9 Hypothyroidism, unspecified (principal) | CPT/HCPCS: 84439; 84443; 84480 ==

== ENCOUNTER 2024-10-13 08:40 | Outpatient (CLI) | payer MEDICAID, SELFPAY ==
--- NOTE | 2024-10-13 08:45 | MR_ITS ---
WS: [id number] MRI RIGHT KNEE HISTORY: right medial knee pain - history of medial knee repair COMPARISON: 04/11/2024 Anterior cruciate ligament: Intact. Posterior cruciate ligament: Intact. Medial collateral ligament: Small amount of fluid adjacent to the MCL. Meniscal protrusion from the joint is new and displaced in the MCL. No tear. Posterior lateral corner structures: Intact. Medial menisci: Reidentified is a horizontal tear in the posterior horn. Tear is become more pronounced and there is now a fluid component in the central meniscus. Horizontal tear extends to the inferior articular surface. Intermediate signal extending vertically near the central body of the meniscus. This may be related to meniscal repair or very small radial tear. Anterior horn is normal. Lateral meniscus: Intact. Normal signal, size and shape. Extensor mechanism: Distal quadriceps tendon and patellar tendons are intact. Fluid and soft tissue: Small suprapatellar joint effusion. Joint effusion has progressed since the prior study. No Estevez's cyst. Osseous and articular structures: Patellofemoral compartment: Normal. Medial compartment: Significant joint space narrowing. Very mild fissuring weightbearing surface femoral condyle cartilage. No underlying marrow edema. No subchondral cyst. Subtle area of intermediate signal in the tibial plateau which is new. Lateral compartment: No significant joint space narrowing. Cartilage is intact. MR/MR knee RT wo con* [id number] IMPRESSION: 1. Horizontal tear posterior horn medial meniscus. Meniscal tear appears more advanced as compared to the prior study of 03/12/2024. Retear suspected. 2. No ACL tear. 3. New, mild medial meniscal extrusion contacting the ACL. 4. Very small amount of marrow edema along the medial tibial plateau. 5. Very mild fissuring along the weightbearing surface medial femoral condyle.
== END 2024-10-13 08:41 | disposition home or self-care (01) ==
LOC: RAD 08:41
PROVIDERS: PCP Family Medicine; Visit Provider Family Medicine
DX: M23.221 Derangement of posterior horn of medial meniscus due to old tear or injury, right knee (principal)
CPT/HCPCS: 73721

== ENCOUNTER 2024-10-27 11:16 | Outpatient (CLI) | payer MEDICAID, SELFPAY ==
[2024-10-27 12:05] LABS: Hematocrit 40.2 % (36-47); Hemoglobin 13.70 g/dL (11.27-16.99); Mean Corpuscular HGB Conc 34.1 g/dL (30-55); Mean Corpuscular Hemoglobin 30.2 pg (27-33); Mean Corpuscular Volume 88.5 fl (85-98); Nucleated Red Blood Cells % 0 %; Platelet Count 280 10^3/cmm (157-399); Red Blood Count 4.54 10^6/uL (3.85-5.65); White Blood Count 4.28 10^3/uL (3.29-11.43)
[2024-10-27 12:38] LABS: Alanine Aminotransferase 25 U/L (0-33); Albumin Level 4.1 g/dL (3.5-5.2); Alkaline Phosphatase 104 U/L (35-105); Aspartate Amino Transferase 27 U/L (0-32); Globulin 2.9 g/dL (1.3-4.6); Total Protein 7.0 g/dL (6.6-8.7)
== END 2024-10-27 11:17 | disposition home or self-care (01) ==
LOC: LAB 11:18
PROVIDERS: PCP Family Medicine; Visit Provider Internal Medicine Rheumatology
DX: Z79.899 Other long term (current) drug therapy (principal)
CPT/HCPCS: 36415; 80076; 82565; 85025; 85651; 86140

== ENCOUNTER 2024-11-04 15:38 | Outpatient (CLI) | payer MEDICAID, SELFPAY ==
--- NOTE | 2024-11-04 16:00 | USR_ITS ---
PROCEDURE INFORMATION: Exam: US Soft Tissue Head and Neck, Thyroid Exam date and time: 11/04/2024 3:51 PM Age: 39 years old Clinical indication: Condition or disease; Thyroid disorder; Goiter, non-toxic; Type not specified; Additional info: E04.9 - nontoxic goiter, unspecified TECHNIQUE: Imaging protocol: Real-time ultrasound scan of the neck with image documentation. Exam focused on the thyroid. COMPARISON: US thyroid [id number] 03/30/2018 4:40 PM FINDINGS: Thyroid: The patient is status post thyroidectomy. No residual thyroid tissue demonstrated in the thyroid fossa. Isthmus: Absent. Salivary glands: The submandibular glands are normal. Other findings: No cervical kaylin enlargement. US/US thyroid [id number] IMPRESSION: No sonographic abnormality in the anterior. Continued clinical concern for neck swelling can be further evaluated contrast-enhanced neck CT if indicated.
== END 2024-11-04 15:39 | disposition home or self-care (01) ==
LOC: RAD 15:39
PROVIDERS: PCP Family Medicine; Visit Provider Internal Medicine Rheumatology
DX: E04.9 Nontoxic goiter, unspecified (principal); E89.0 Postprocedural hypothyroidism
CPT/HCPCS: 76536

== ENCOUNTER → 2024-11-22 13:52 | Outpatient (BNVA) | payer MEDICAID, SELFPAY | PROVIDERS: PCP Family Medicine | DX: E03.9 Hypothyroidism, unspecified (principal) | CPT/HCPCS: 84439; 84443; 84480 ==

== ENCOUNTER 2025-03-18 14:31 | Emergency (ER) | payer MEDICAID, SELFPAY ==
--- OUTSIDE RECORDS SUMMARY | 2025-03-18 14:36 | XMS_ITS | Clinical Summary ---
Author Organization [facility] Address [address] [place] [address] Phone Care Team Providers Care Court Worker Name Role Phone Ana Laura Анна Mike COVINGTONP Primary Care Provider [phone] Allergies Active Allergy Reactions Criticality Noted Date Comments Hydrocodone Nausea and Vomiting Low 06/29/2018 Sulfa (Sulfonamide Antibiotics) Rash High 06/26 Medications amitriptyline (ELAVIL) 25 mg tablet Take 50 mg by mouth daily at bedtime. 9 Active ALPRAZolam (XANAX) 0.25 mg tablet Take 0.25 mg by mouth Continuous as needed for Anxiety. Active calcium as carbonate (TUMS ULTRA) 1,000 mg (400 mg elemental) Tablet, Chewable Take 1 Tablet (400 mg) by mouth 4 times daily. 180 Tablet 1 9 Active levothyroxine 125 mcg tablet Take 1 Tablet (125 mcg) by mouth daily medical auditor. 30 Tablet 1 9 Active docusate sodium (COLACE) 100 mg capsule Take 1 Capsule (100 mg) by mouth 2 times daily. 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/2018 Pharyngeal dysphagia 07/20/2018 Globus sensation 07/19/2018 Thyromegaly 06/29/2018 Oral phase dysphagia 06/29/2018 Family History Medical History Relation Name Comments Cancer Father Diabetes Father Hypertension Father Relation Name Status Comments Father Social History Tobacco Use Types Packs/Day Years Used Date Smoking Tobacco: Never Smokeless Tobacco: Never Alcohol Use Standard Drinks/Week Comments Yes 0 (1 standard drink = 0.6 oz pur e alcohol) Occasionally Comments No Sex and Gender Information Value Date Recorded Sex Assigned at Not on file Legal Sex Female 9:42 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 Gender Identity Not on file Sexual Orientation Not on file Last Filed Vital Signs Vital Sign Reading Time Taken Comments Blood Pressure 120/79 12/16/2018 9:34 AM CDT Pulse 65 12/16/2018 9:34 AM CDT Temperature 36.6 C (97.8 F) 09/07/2018 8:17 AM CDT Respiratory Rate 16 09/07/2018 8:17 AM CDT Oxygen Saturation 98% 09/07/2018 8:17 AM CDT Inhaled Oxygen Concentration - - Weight 72.6 kg (160 lb) 12/16/2018 9:34 AM CDT Height 160 cm (5' 3 ) 12/16/2018 9:34 AM CDT Body Mass Index 28.34 12/16/2018 9:34 AM CDT Plan of Treatment Health Maintenance Due Date Last Done Comments DTAP/TDAP/TD VACCINES (1 - Tdap) 2004 HEPATITIS B VACCINES (1 of 3 - 19+ 3-dose series) 04/2004 HPV/Cotest (21-29) 2006 HPV VACCINES (1 - 3-dose SCDM series) 2012 CERVICAL CANCER SCREENING 06/26/2015 HPV/Cotest (30-65) 06/26/2015 PAP SMEAR 06/26/2015 INFLUENZA VACCINE (#1) 2024 Medical Devices Implanted Type Area Gas Well Drilling Manager Device Identifier Shelf Expiration Date Model / Serial / Lot Hemostatic Surgifoam [id number] 1971 - Implanted:Qty: 1 on 09/06/2018 by Salomon See MD at [facility] Hemostatic N/A: Neck [employer] 07/07/20221971 / NA / [id number] Insurance RX [employer] BLUE CROSS PATHWAY(X) EXCHANGE Advance Directives For more information, please contact: [phone] * Full Code (Latest Code Status on File) Date Activated Date Inactivated Comments 09/06/2018 10:21 PM 09/07/2018 2:[address] Worker Relationship Specialty Start Date End Date Анна Du FNP [address] [place] [id number] PCP - General NURSE PRACTITIONER 07/13/18
--- OUTSIDE RECORDS SUMMARY | 2025-03-18 14:36 | XMS_ITS | Clinical Summary ---
Author Organization [facility] Address [address] Huang: Epic Prelude ADT [place]ISS APP[place] [address] Care Team Providers Care Heating And Ventilating Drafter Name Role Phone Ana Laura, Анна COVINGTONP Primary Care Provider [phone] Allergies Active Allergy Reactions Criticality Noted Date Comments Hydrocodone Nausea and Vomiting Low 06/29/2018 Sulfa (Sulfonamide Antibiotics) Rash High 06/26 Medications docusate sodium (COLACE) 100 mg capsule Take 1 Capsule (100 mg) by mouth 2 times daily. 30 Capsule 1 9 Active calcium as carbonate (TUMS ULTRA) 1,000 mg (400 mg elemental) Tablet, Chewable Take 1 Tablet (400 mg) by mouth 4 times daily. 180 Tablet 1 9 Active metoprolol succinate (TOPROL XL) 50 mg Extended Release 24 hour tablet 9 Active levothyroxine 125 mcg tablet Take 1 Tablet (125 mcg) by mouth daily photographer portrait. 30 Tablet 1 9 Active amitriptyline (ELAVIL) 25 mg tablet Take 50 mg by mouth daily at bedtime. 9 Active ALPRAZolam (XANAX) 0.25 mg tablet Take 0.25 mg by mouth Continuous as needed for Anxiety. 9 Active [place] Thyroid 90 mg tablet TAKE 1 TABLET BY MOUTH ON THURSDAY, THURSDAY, THURSDAY AND THURSDAY. 5 Active Benlysta 200 mg/mL Auto-Injector Inject ONE auto-injector UNDER THE SKIN EVERY SEVEN DAYS 5 Active hydroCHLOROthi azide 25 mg tablet take 1 tablet by mouth in the morning Active omeprazole (PriLOSEC) 40 mg Capsule, Delayed Release(E.C.) Take 1 Capsule by mouth daily. Active Phentermine 15 mg Capsule Take 15 mg by mouth daily. Active citalopram (CeleXA) 10 mg tablet Take 0.5 Tablets by mouth daily. Active ketoconazole (NIZORAL) 2 % Shampoo APPLY TOPICALLY EVERY 14 DAYS, (MAY USE IN PLACE OF COAL TAR SHAMPOO) Active ALPRAZolam (XANAX) 0.25 mg tablet Take 0.25 mg by mouth. Active ondansetron (ZOFRAN) 4 mg Tablet Take 1 Tablet (4 mg) by mouth every 8 hours as needed for Nausea/Emesis. 30 Tablet 11/24/2024 10:34 AM CDT Active doxycycline hyclate (VIBRAMYCIN) 100 mg tablet Take 1 Tablet by mouth 2 times daily. Discontinu ed(Patient thought no longer needed) oxyCODONE (ROXICODONE) 5 mg tabletIndicati ons:Tear of medial meniscus of right knee, current, initial encounter Take 1 Tablet (5 mg) by mouth every 8 hours as needed for Pain. Max Daily Amount: 15 mg 21 Tablet 11/24/2024 10:34 AM CDT Discontinu ed(Patient thought no longer needed) naloxone (NARCAN) 4 mg/spray Simla, Non-Aerosol EMERGENCY USE ONLY: Administer 1 spray (4 mg) in one nostril one time. May repeat in alternating nostrils every 2-3 min until responsive or EMS arrives. 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 Tinnitus aurium, bilateral 12/16/2018 Neck nodule 12/16/2018 Neck swelling 12/16/2018 Conductive hearing loss of r ight ear with unrestricted hearing of left ear 12/16/2018 History of Total Thyroidectomy 08/201809/15/2018 Sheldon's thyroiditis 07/20/2018 Pharyngeal dysphagia 07/20/2018 Globus sensation 07/19/2018 Oral phase dysphagia 06/29/2018 Thyromegaly 06/29/2018 Encounters Date Type Department Care Team Description 03/02/2025 9:00 AM TAG PRESS OPERATOR Office Visit [facility] [address] [place] [phone] Get Melton PA Status post arthroscopic knee surgery (Primary Dx) 02/14/2025 External Device Data STL ABSTRACTION Provider, Abstract 01/05/2025 8:00 AM CDT Video Visit [facility] [address] [place] [phone] Carlo Morel Status post arthroscopic knee surgery (Primary Dx) from Last 3 Months Family History Medical History Relation Name Comments Cancer Father Diabetes Father Hypertension Father Relation Name Status Comments Father Social History Tobacco Use Types Packs/Day Years Used Date Smoking Tobacco: Never Smokeless Tobacco: Never Tobacco Cessation:Counseling Given: Not Answered Alcohol Use Standard Drinks/Week Comments Not Currently 0 (1 standard drink = 0.6 oz pur e alcohol) Feeling Safe Answer Date Recorded Are you in a relationship wi th someone who hurts you emotionally and/or physically? No 11/24/2024 Comments No Sex and Gender Information Value Date Recorded Sex Assigned at Not on file Legal Sex Female 4:18 AM TAG PRESS OPERATOR Gender Identity Not on file Sexual Orientation Not on file Last Filed Vital Signs Vital Sign Reading Time Taken Comments Blood Pressure 118/80 03/02/2025 8:53 AM TAG PRESS OPERATOR Pulse 88 11/24/2024 10:45 AM CDT Temperature 36.7 C (98 F) 11/24/2024 9:48 AM CDT Respiratory Rate 19 11/24/2024 9:43 AM CDT Oxygen Saturation 99% 11/24/2024 10:45 AM CDT Inhaled Oxygen Concentration - - Weight 68.9 kg (152 lb) 03/02/2025 8:53 AM TAG PRESS OPERATOR Height 162.6 cm (5' 4 ) 03/02/2025 8:53 AM TAG PRESS OPERATOR Body Mass Index 26.09 03/02/2025 8:53 AM TAG PRESS OPERATOR Plan of Treatment Health Maintenance Due Date Last Done Comments Pre-Diabetes and Diabetes Screening 1985 DTAP/TDAP/TD VACCINES (2 - Tdap) 11/26/2001 11/26/19 02 HEPATITIS B VACCINES (1 of 3 - 19+ 3-dose series) 04/2004 HPV/Cotest (21-29) 2006 HPV VACCINES (1 - 3-dose SCDM series) 2012 CERVICAL CANCER SCREENING 06/26/2015 HPV/Cotest (30-65) 06/26/2015 PAP SMEAR 06/26/2015 INFLUENZA VACCINE (#1) 2024 COVID-19 Vaccine ( season) 12/26/202409/2020 Medical Devices Implanted Type Area Construction Person Device Identifier Shelf Expiration Date Model / Serial / Lot Hemostatic Surgifoam [id number] 1971 - Implanted:Qty: 1 on 09/06/2018 by Salomon See MD Hemostatic N/A: Neck [employer]- [employer] 07/07/20221971 / NA / [id number] [place] [address] [address] HEALTH PLAN MEDICAID * Guarantor: MITCH PHILLIPS Account Type Relation to Patient Date of Phone Billing Address Personal/Family [address] [facility] [place] [address] RX INFOCROSSING Medicaid Advance Directives For more information, please contact: [phone] * Full Code (Latest Code Status on File) Date Activated Date Inactivated Comments 11/24/2024 6:14 AM 11/24/2024 1:12 PM Care Teams Heating And Ventilating Drafter Relationship Specialty Start Date End Date Анна Du FNP [address] [place] [phone] PCP - General NURSE PRACTITIONER 07/13/18
[2025-03-18 14:42] VITALS: BP 127/91; PULSE 92; RESP 14; TEMP 36.4; O2SAT 95; BMI 25.9
--- NOTE | 2025-03-18 14:50 | USR_ITS ---
PROCEDURE INFORMATION: Exam: US Duplex Right Lower Extremity Veins, Limited Exam date and time: 03/18/2025 3:37 PM Age: 39 years old Clinical indication: Swelling (edema) of limb; Lower extremity, right Lower extremity, TECHNIQUE: Imaging protocol: Real-time duplex ultrasound of the right extremity with 2-D antonio scale, color Doppler flow and spectral waveform analysis including responses to compression and other maneuvers (when performed) with image documentation. Limited exam was focused on the right lower extremity veins. COMPARISON: MR knee RT wo con* [id number] 10/13/2024 8:50 AM FINDINGS: Right deep veins: Unremarkable. The common femoral, femoral, proximal profunda femoral and popliteal veins are patent without thrombus. Normal Doppler waveforms. Normal compressibility and/or augmentation response. Superficial veins: Greater saphenous vein at the saphenofemoral junction is patent without thrombus. Soft tissues: Unremarkable. Scanning through the posterior thigh region related to symptoms demonstrates no mass or focal fluid collection. US/[place] [id number] IMPRESSION: No evidence of deep vein thrombosis or other focal abnormality.
--- NOTE | 2025-03-18 15:13 | ED_ITS ---
HPI - Extremity Problem General: Chief complaint: Extremity Problem,Nontraumatic Stated complaint: rt leg swollen Time Seen by Provider: 03/18/25 14:49 Source: patient Mode of arrival: ambulatory Limitations: no limitations History of Present Illness: Patient is a 39-year-old female presenting to the emergency department complaining of right leg swelling since last . Reports a history of sys temic lupus and is on immunologic's, does not report any trauma to the leg. No history of previous blood clots. Pain primarily to the right posterolateral thigh but states she can feel it radiating down towards the back of the knee. States that her leg has been intermittently cold and she is concerned of some circulatory issue. She is not short of breath or having any chest pain. No history of cancer. Vitals stable at this time. MD Complaint: extremity pain and extremity swelling Onset (ago): day(s) Pain Consistency: constant Location: right and lower extremity Radiation: distal Associated symptoms: Deny chest pain, fever(s) or rash Related Data Home Medications ?Medication ?Instructions ?Recorded ?Confirmed phentermine 15 mg capsule 15 mg PO DAILY 10/25/24 07/05/21 Previous Rx's ?Medication ?Instructions ?Recorded omeprazole 40 mg capsule,delayed 40 mg PO DAILY #30 ca ps 09/29/24 release hydrochlorothiazide 25 mg tablet 25 mg PO QAM #90 tabs 10/03/24 belimumab 200 mg/mL subcutaneous 200 mg SUBCUT .Q7days #4 mL 10/25/24 auto-injector (Benlysta) alprazolam 0.25 mg tablet 0.25 mg PO DAILY PRN anxiety #30 11/01/24 tabs thyroid (pork) 90 mg tablet 90 mg PO DAILY #90 tabs ([place]ford Thyroid) thyroid (pork) 60 mg tablet 60 mg PO DAILY #6 tabs 08/19 Allergies Allergy/AdvReac Type Severity Reaction Status Date / Time buspirone (From BuSpar) Allergy Intermediate drowsiness/ Verified 03/18/25 14:47 nightmares leflunomide Allergy ADR-Headach Verified 03/18/25 14:47 e Sulfa (Sulfonamide Allergy ALGY-Rash Verified 03/18/25 14:47 Antibiotics) methotrexate AdvReac Intermediate nausea and Verified 03/18/25 14:47 [place] hydrocodone AdvReac ADR-Vomitin Verified 03/18/25 14:47 g Review of Systems General: Reports: 10 or more systems reviewed and unremarkable except in HPI and below Const: Denies: fever(s) or chills Card: Denies: chest pain Resp: Denies: dyspnea or productive cough GI: Denies: abdominal pain, nausea, vomiting or diarrhea : Denies: flank pain Musc: Reports: extremity pain (rle) and extremity swelling (rle); Denies: neck pain, back pain, joint pain, joint swelling, joint redness, joint warmth, limited range of motion or muscle weakness Skin/Breast: Denies: rash Neuro: Denies: headache(s), numbness in extremities or weakness in extremities PFSH ED PFSH: Medical History Immunization counseling High risk medication use Inflammatory arthritis SLE (systemic lupus erythematosus related syndrome) Asymptomatic bradycardia ELKIN positive History of COVID-15 May 2021 Hypothyroidism, unspecified Panic anxiety syndrome Surgical History H/O: hysterectomy History of cholecystectomy H/O bladder repair surgery H/O lithotripsy H/O thyroidectomy Family History Other Cancer Diabetes Social History Smoking and tobacco/nicotine status: never used tobacco/nicotine Alcohol intake: current Alcohol intake frequency: holidays/special occasions only Substance/Drug Use: never Physical Exam Const: COMMON NORMALS: no acute distress, patient oriented x3, no limitations, healthy appearing, alert and well nourished HENMT: COMMON NORMALS: normocephalic and atraumatic HEAD & SCALP: normocephalic and atraumatic Neck/C-Spine: COMMON NORMALS: full ROM, supple and no meningeal signs Resp: COMMON NORMALS: normal respiratory effort, No use of accessory muscles and clear to auscultation bilaterally AUSCULTATION: clear to auscultation bilaterally Cardio: COMMON NORMALS: regular rate and regular rhythm RATE: regular rate RHYTHM: regular rhythm Extremity: COMMON NORMALS: full ROM, capillary refill normal, no joint enlargement and no clubbing, cyanosis or edema NARRATIVE EXTREMITY EXAM: Tender to palpation right posterolateral thigh, there is no bruising or induration at this area. No overlying erythema. Mild tender to palpation to right popliteal area, endorsing a positive Homans' sign with dorsiflexion of the right foot. No coolness or mottling to the right lower extremity. Distal DP/PT pulses are palpable. Neuro: COMMON NORMALS: patient oriented x3, moves all extremities, no focal motor deficits and no sensory deficits noted SENSORIUM/ORIENTATION: Yes alert MENINGEAL SIGNS: Yes no meningeal signs Skin: COMMON NORMALS: no rashes or lesions noted GENERAL SKIN EXAM: no rashes or lesions noted Course Vital Signs: Vital signs: Vital Signs Temperature 97.5 F L 03/18/25 14:42 Pulse Rate 92 03/18/25 14:42 Respiratory Rate 14 03/18/25 14:42 Blood Pressure 127/91 03/18/25 14:42 Pulse Oximetry 95 03/18/25 14:42 Oxygen Delivery Me thod Room Air 03/18/25 14:42 MDM - Extremity (Nontraumatic) Medical Decision Making Valuation of right lower extremity pain that was atraumatic, has been going for the past few days and she was concerned of a blood clot. The neurovascular exam was normal, distal pulses palpable there is no coolness or mottling to the right lower extremity. No swelling noted, though there was a positive Homans' sign, nonspecific in the setting as ultrasound of right lower extremity venous duplex ruled out any DVT. I suspect benign etiology at this time but she is informed of signs and symptoms to watch for that would warrant a return, and she is to follow-up routinely with primary care provider. Lab Data Radiology Impressions Venous Duplex 03/18/25 14:50 IMPRESSION: No evidence of deep vein thrombosis or other focal abnormality. All radiology interpretation(s) finalized by discharge Discharge Plan Discharge Patient Disposition: Home Clinical Impression: Acute pain of right lower extremity Condition: Stable Prescriptions: No Action Benlysta 200 mg/mL auto-injector 200 mg SUBCUT .Q7days Qty: 4 5RF phentermine 15 mg capsule 15 mg PO DAILY Rx Instructions: must administer 2 hours after breakfast omeprazole 40 mg capsule,delayed release(DR/EC) 40 mg PO DAILY Qty: 30 0RF hydrochlorothiazide 25 mg tablet 25 mg PO QAM Qty: 90 0RF thyroid (pork) [St[place]ford Thyroid] 90 mg tablet 90 mg PO DAILY Qty: 90 0RF alprazolam 0.25 mg tablet 0.25 mg PO DAILY PRN (Reason: anxiety) Qty: 30 0RF thyroid (pork) 60 mg tablet 60 mg PO DAILY Qty: 6 0RF Discharge Orders: Discharge ED (Routine); Ordered 03/18/25 Ordered By: Gabriel Parkinson Referrals: Leidy Noonan DO [Primary Care Provider, Family Practice] Patient Instructions: Patient Portal & Colleen Instructions Activity Restrictions/Additional Instructions: Lower Extremity Pain Discharge You were evaluated for pain in your right leg. Tests showed no blood clot (DVT) in your veins. The pain is likely from a muscle or joint problem. What to do at home: - Rest your leg as needed, but gentle movement and stretching can help. - You may use [id number] pain medicine like acetaminophen or ibuprofen if you do not have allergies or other reasons to avoid them. - Applying a warm compress or elevating your leg may help with discomfort. - If you have compression stockings at home, you may use them for comfort, but they are not required unless advised by your doctor. - Try to avoid activities that make the pain worse. When to return or seek medical care: - If your leg pain gets worse, or you develop new symptoms such as: - Swelling in your leg - Redness or warmth - Sudden shortness of breath - Chest pain - Fever - Weakness, numbness, or inability to move your leg - If you are unable to walk or bear weight on your leg - If you notice any new lumps, cords, or changes in skin color If your symptoms do not improve in the next few days, or if they get worse, please contact your healthcare provider. Sometimes, a repeat ultrasound may be needed if symptoms persist or worsen. Follow-up: - If your pain continues for more than a week, or if you have any concerns, schedule a follow-up appointment. If you have any questions or concerns, do not hesitate to reach out to your healthcare team. Print Language: Bruneian Coding Level of Care Code ED [employer] for Iliana Peters
[2025-03-18 16:21] VITALS: BP 146/90; PULSE 95; O2SAT 98
== END 2025-03-18 16:23 | disposition home or self-care (01) ==
PROVIDERS: Emergency Provider Physician Assistant; PCP Family Medicine
DX: M79.604 Pain in right leg (principal)
CPT/HCPCS: 93971; 99284

== ENCOUNTER 2025-04-26 11:43 | Outpatient (CLI) | payer MEDICAID, SELFPAY ==
[2025-04-26 12:13] LABS: Hematocrit 42.9 % (36-47); Hemoglobin 14.30 g/dL (11.27-16.99); Mean Corpuscular HGB Conc 33.3 g/dL (30-55); Mean Corpuscular Hemoglobin 29.6 pg (27-33); Mean Corpuscular Volume 88.8 fl (85-98); Nucleated Red Blood Cells % 0 %; Platelet Count 348 10^3/cmm (157-399); Red Blood Count 4.83 10^6/uL (3.85-5.65); White Blood Count 6.12 10^3/uL (3.29-11.43)
[2025-04-26 12:50] LABS: Alanine Aminotransferase 21 U/L (0-33); Albumin Level 4.1 g/dL (3.5-5.2); Alkaline Phosphatase 110 U/L (35-105); Aspartate Amino Transferase 24 U/L (0-32); Free T4 Free Thyroxine 0.74 ng/dL (0.82-1.77); Globulin 2.6 g/dL (1.3-4.6); Thyroid Stimulating Hormone 14.02 uIU/mL (0.27-4.20); Total Protein 6.7 g/dL (6.6-8.7)
== END 2025-04-26 11:44 | disposition home or self-care (01) ==
LOC: LAB 11:45
PROVIDERS: PCP Family Medicine; Visit Provider Internal Medicine Rheumatology
DX: Z79.899 Other long term (current) drug therapy (principal); E03.9 Hypothyroidism, unspecified
CPT/HCPCS: 80076; 82565; 84439; 84443; 85025; 85651; 86140